=== PATIENT | female | born 1960 | race African-American/Black ===

== ENCOUNTER 2018-01-14 19:05 | Emergency (ER) | payer OTHER ==
[2018-01-14 19:14] VITALS: BMI 30.9
--- NOTE | 2018-01-14 19:20 | PDOC ---
Rapid Medical Evaluation Chief Complaint: Lightheaded Time Seen by Provider: 01/14/18 19:12 Medical Evaluation: Allergies Allergy/AdvReac Type Severity Reaction Status Date / Time No Known Allergies Allergy Verified 01/14/18 19:10 01/14/18 19:13 I have performed a brief in-person evaluation of this patient. The patient presents with a chief complaint of: dizziness, started while driving - drove to family house who called 911. + URI x 3 days Pertinent physical exam findings: Alert, with no neuro changes. I have ordered the following: EKG The patient will proceed to the ED for further evaluation. 01/14/18 19:16 Discharge Disposition - Referrals Referrals: Delmar Reilly MD [Primary Care Provider] - - Patient Instructions - Post Discharge Activity
[2018-01-14] MEDS ORDERED: FAMOTIDINE 20 MG/50 ML IVPB 20 MG/50 ML MG IVPB ONE ×2 (20:02→20:26)
[2018-01-14] MEDS ORDERED: SODIUM CHLORIDE 1,000 ML IV STA (20:02)
--- NOTE | 2018-01-14 20:24 | PDOC ---
History of Present Illness - General Chief Complaint: Lightheaded Stated Complaint: Blood Pressure Problem Time Seen by Provider: 01/14/18 19:12 History Source: Patient - History of Present Illness Initial Comments: 57 y/o F hx of GERD, HTN presents with feeling lightheaded and having burning along substernal region of chest while driving from work around 6:30 PM. States did not feel like her usual GERD as with that she usually has hiccups; is also not on any meds for GERD. Also mentions having mild dry cough and sore throat x 10-12 days, for which she has been taking cough medications. Denies fever, sob, abd pain, n/v/d, headache, visual/gait changes, numbness/tingling/weakness of extremities. Denies smoking or drug use. Denies FH of CAD or MO. 01/14/18 20:27 Past History - Past Medical History Allergies/Adverse Reactions: Allergies Allergy/AdvReac Type Severity Reaction Status Date / Time No Known Allergies Allergy Verified 01/14/18 19:10 Home Medications: Ambulatory Orders Amlodipine Besylate 5 mg PO DAILY 01/14/18 Hydrochlorothiazide 12.5 mg PO DAILY 01/14/18 Losartan Potassium 50 mg PO DAILY 01/14/18 COPD: No HTN: Yes - Suicide/Smoking/Psychosocial Hx Smoking History: Never smoked Have you smoked in the past 12 months: No Hx Alcohol Use: No Review of Systems - Review of Systems Comments:: See HPI 01/14/18 20:35 *Physical Exam - Vital Signs Last Vital Signs Temp Pulse Resp BP Pulse Ox 98.2 F 101 H 18 147/79 98 01/14/18 19:12 01/14/18 19:12 01/14/18 19:12 01/14/18 19:12 01/14/18 19:12 - Physical Exam General Appearance: No: Apparent Distress Respiratory/Chest: positive: Lungs Clear, Normal Breath Sounds. negative: Respiratory Distress Cardiovascular: positive: Regular Rhythm, Regular Rate, S1, S2. negative: Murmur Gastrointestinal/Abdominal: positive: Normal Bowel Sounds, Soft. negative: Tender, Distended, Guarding, Rebound Extremity: positive: Normal Inspection. negative: Pedal Edema, Calf Tenderness Neurologic: positive: inside sales territory manager II-XII NML intact, Fully Oriented, Alert, Normal Mood/ Affect, Motor Strength 5/5. negative: Abnormal Cranial NS, Facial Droop, Numbness, Sensory Deficit Heart Score/ECG Review - History History: Moderately suspicious - Electrocardiogram EKG: Normal - Age Age: 45-65 - Risk Factors Risk Factors Heart Score: Yes Hx Hypertension Based on the list above the patient has:: 1-2 risk factors - Troponin Troponin: </= normal limit - Score Heart Score - Total: 3 #1 EKG shows NSR at 91 bpmm TWI lead III, no other changes noted 01/14/18 20:37 Moderate Sedation - Procedure Monitoring Vital Signs: Procedure Monitoring Vital Signs Temperature 98.2 F 01/14/18 19:12 Pulse Rate 101 H 01/14/18 19:12 Respiratory Rate 18 01/14/18 19:12 Blood Pressure 147/79 01/14/18 19:12 O2 Sat by Pulse Oximetry (%) 98 01/14/18 19:12 ED Treatment Course - LABORATORY CBC & Chemistry Diagram: 01/15/18 00:32 01/14/18 20:35 - ADDITIONAL ORDERS Additional order review: Laboratory Results 01/15/18 01/14/18 01/14/18 00:32 21:25 20:35 Sodium 140 Potassium 3.5 Chloride 105 Carbon Dioxide 24 Anion Gap 11 BUN 23 H Creatinine 1.1 Creat Clearance w eGFR 51.20 Random Glucose 112 H Calcium 9.2 Troponin I < 0.02 < 0.02 Urine Color Yellow Urine Appearance Clear Urine pH 5.0 Ur Specific Harrod 1.024 Urine Protein Negative Urine Glucose (UA) Negative Urine Ketones Negative Urine Blood Negative Urine Nitrite Negative Urine Bilirubin Negative Urine Urobilinogen 2.0 H Ur Leukocyte Esterase Negative 01/15/18 01/14/18 00:32 20:35 RBC 3.80 4.50 MCV 84.9 85.1 MCHC 34.6 34.1 RDW 13.1 13.4 MPV 8.0 7.9 Neutrophils % 87.3 H 80.2 D Lymphocytes % 9.1 D 13.3 D Monocytes % 3.4 L 4.7 Eosinophils % 0.0 D 1.1 Basophils % 0.2 0.7 - RADIOLOGY Radiology Studies Ordered: Category Date Time Status CHEST PA & LAT [RAD] Stat Radiology 01/14/18 20:02 Taken - Medications Given in the ED: ED Medications Discontinued Medications Generic Name Dose Route Start Last Admin Trade Name Freq PRN Reason Stop Dose Admin Famotidine/Sodium Chloride 20 mg in 50 mls @ 100 mls/hr 01/14/18 20:02 20:23 Pepcid 20 Mg Premixed Ivpb - IVPB 01/14/18 20:31 100 mls/hr ONCE ONE Administration Sodium Chloride 1,000 mls @ 1,000 mls/hr 01/14/18 20:02 01/14/18 20:22 Normal Saline - IV 01/14/18 21:01 1,000 mls/hr ASDIR STA Administration Medical Decision Making - Medical Decision Making 57 y/o F hx of GERD and HTN presents with lightheadedness and chest burning sensation that started around 6:30 PM. Initial EKG nonischemic. Risk factors for ACS include HTN and age. Will get 2 sets of troponin and repeat EKG in 3 hours given time of onset of symptoms. Consider GERD. Less suspicious for PNA given afebrile and lungs clear. Unlikely aortic dissection Plan: CBC, BMP, trop, IVF, Pepcid, CXR, reassess 01/14/18 20:38 Initial trop neg Heart score 3 Will get repeat trop and EKG in 3 hours WBC elevated to 15.5 CXR negative for PNA Patient mentions having slight dysuria from last week; will check UA, UCx Abnormal Lab Results 01/14/18 01/14/18 20:35 20:35 WBC 15.5 H Absolute Neuts (auto) 12.5 H BUN 23 H Random Glucose 112 H 01/14/18 21:36 UA negative Repeat labs show no change in WBC count Repeat trop neg; repeat EKG unchanged with no ischemic changes Patient clinically appears well Advised to f/u with her PCP 01/15/18 01:23 *DC/Admit/Observation/Transfer Diagnosis at time of Disposition: Lightheadedness - Discharge Dispostion Disposition: HOME Condition at time of disposition: Good Decision to Admit order: No - Referrals Referrals: Delmar Reilly MD [Primary Care Provider] - 2 Days - Patient Instructions Printed Discharge Instructions: DI for Dizziness-Nonvertigo Additional Instructions: Thank you for choosing [facility]. It was a pleasure taking care of you. You were seen here for dizziness and chest burning sensation Your labs were only notable for slightly elevated white blood cell count Your urine and chest xray were normal Rest of workup was unremarkable. Return to the Emergency Department if your symptoms worsen or persist, you have fever, shortness of breath, chest pain, severe abdominal pain, vomiting, weakness of extremities (arms and/or legs), changes in vision or walking or other concerning symptoms. - Post Discharge Activity
[2018-01-14 20:53] LABS: BASO % 0.7 % (0-2.0); EOS % 1.1 % (0-4.5); HEMATOCRIT 38.3 % (32.4-45.2); HEMOGLOBIN 13.1 GM/dL (10.7-15.3); LYMPH % 13.3 % (8-40); MCH 29.1 pg (25.7-33.7); MCHC 34.1 g/dl (32.0-36.0); MEAN CELL VOLUME 85.1 fl (80-96); MEAN PLT VOLUME 7.9 fl (7.5-11.1); MONO % 4.7 % (3.8-10.2); NEUT % 80.2 % (42.8-82.8); PLATELET COUNT 370 K/MM3 (134-434); RDW 13.4 % (11.6-15.6); WHITE BLOOD COUNT 15.5 K/mm3 (4.0-10.0)
[2018-01-14 21:25] LABS: ANION GAP 11 MMOL/L (8-16); BLOOD UREA NITROGEN 23 mg/dL (7-18); CALCIUM 9.2 mg/dL (8.5-10.1); CHLORIDE 105 mmol/L (98-107); CO2 24 mmol/L (21-32); CREATININE 1.1 mg/dL (0.55-1.3); GLUCOSE,RANDOM 112 mg/dL (74-106); POTASSIUM 3.5 mmol/L (3.5-5.1); SODIUM 140 mmol/L (136-145)
[2018-01-14 22:00] LABS: URINE APPEARANCE CLEAR; URINE BILIRUBIN NEGATIVE (<2.0 mg/dL); URINE COLOR YELLOW; URINE GLUCOSE (UA) NEGATIVE (NEGATIVE); URINE KETONE NEGATIVE (NEGATIVE); URINE LEUK ESTERASE NEGATIVE (NEGATIVE); URINE NITRITE NEGATIVE (NEGATIVE); URINE PROTEIN NEGATIVE (NEGATIVE)
--- NOTE | 2018-01-14 22:02 | PDOC ---
*Physical Exam - Vital Signs Last Vital Signs Temp Pulse Resp BP Pulse Ox 98.2 F 101 H 18 147/79 98 01/14/18 19:12 01/14/18 19:12 01/14/18 19:12 01/14/18 19:12 01/14/18 19:12 ED Treatment Course - LABORATORY CBC & Chemistry Diagram: 01/15/18 00:32 01/14/18 20:35 - ADDITIONAL ORDERS Additional order review: Laboratory Results 01/14/18 20:35 Sodium 140 Potassium 3.5 Chloride 105 Carbon Dioxide 24 Anion Gap 11 BUN 23 H Creatinine 1.1 Creat Clearance w eGFR 51.20 Random Glucose 112 H Calcium 9.2 Troponin I < 0.02 01/14/18 20:35 RBC 4.50 MCV 85.1 MCHC 34.1 RDW 13.4 MPV 7.9 Neutrophils % 80.2 D Lymphocytes % 13.3 D Monocytes % 4.7 Eosinophils % 1.1 Basophils % 0.7 - Medications Given in the ED: ED Medications Discontinued Medications Generic Name Dose Route Start Last Admin Trade Name Blanca PRN Reason Stop Dose Admin Famotidine/Sodium Chloride 20 mg in 50 mls @ 100 mls/hr 01/14/18 20:02 20:23 Pepcid 20 Mg Premixed Ivpb - IVPB 01/14/18 20:31 100 mls/hr ONCE ONE Administration Sodium Chloride 1,000 mls @ 1,000 mls/hr 01/14/18 20:02 01/14/18 20:22 Normal Saline - IV 01/14/18 21:01 1,000 mls/hr ASDIR STA Administration Medical Decision Making - Medical Decision Making 01/14/18 22:00 I have examined this patient and reviewed all her labs work and imaging studies. Case discussed with [facility] provider . I agree with her assessment and management of the case *DC/Admit/Observation/Transfer Diagnosis at time of Disposition: Lightheadedness - Discharge Dispostion Disposition: HOME Condition at time of disposition: Good - Referrals Referrals: Delmar Reilly MD [Primary Care Provider] - 2 Days - Patient Instructions Printed Discharge Instructions: DI for Dizziness-Nonvertigo Additional Instructions: Thank you for choosing [facility]. It was a pleasure taking care of you. You were seen here for dizziness and chest burning sensation Your labs were only notable for slightly elevated white blood cell count Your urine and chest xray were normal Rest of workup was unremarkable. Return to the Emergency Department if your symptoms worsen or persist, you have fever, shortness of breath, chest pain, severe abdominal pain, vomiting, weakness of extremities (arms and/or legs), changes in vision or walking or other concerning symptoms. - Post Discharge Activity
[2018-01-15] MEDS ORDERED: ACETAMINOPHEN 325 MG TABLET (FP) PO ONE (00:33)
[2018-01-15 00:55] LABS: BASO % 0.2 % (0-2.0); HEMATOCRIT 32.3 % (32.4-45.2); HEMOGLOBIN 11.2 GM/dL (10.7-15.3); LYMPH % 9.1 % (8-40); MCH 29.4 pg (25.7-33.7); MCHC 34.6 g/dl (32.0-36.0); MEAN CELL VOLUME 84.9 fl (80-96); MONO % 3.4 % (3.8-10.2); NEUT % 87.3 % (42.8-82.8); PLATELET COUNT 320 K/MM3 (134-434); RDW 13.1 % (11.6-15.6)
[2018-01-15] MEDS ORDERED: ACETAMINOPHEN 325 MG TABLET (FP) ONE (01:23)
[2018-01-15 01:48] VITALS: BP 123/73; PULSE 77; TEMP 98.3
--- NOTE | 2018-01-15 17:01 | EKG ---
Test Reason : Blood Pressure : / mmHG Vent. Rate : 078 BPM Atrial Rate : 078 BPM P-R Int : 142 ms QRS Dur : 076 ms QT Int : 406 ms P-R-T Axes : 069 023 022 degrees QTc Int : 462 ms POOR DATA QUALITY, INTERPRETATION MAY BE ADVERSELY AFFECTED NORMAL SINUS RHYTHM NORMAL ECG Confirmed by MD TAISHA, AALNA ([id number]) on 01/15/2018 5:01:27 PM Referred By: Confirmed By:ALANA SUMNER MD
--- NOTE | 2018-01-15 17:02 | EKG ---
Test Reason : Blood Pressure : / mmHG Vent. Rate : 091 BPM Atrial Rate : 091 BPM P-R Int : 140 ms QRS Dur : 072 ms QT Int : 362 ms P-R-T Axes : 065 024 022 degrees QTc Int : 445 ms NORMAL SINUS RHYTHM WITH SINUS ARRHYTHMIA NORMAL ECG Confirmed by MD TAISHA, ALANA ([id number]) on 01/15/2018 5:02:10 PM Referred By: Confirmed By:ALANA SUMNER MD
== END 2018-01-15 01:48 | disposition home or self-care (01) ==
LOC: JER 19:05
PROC: 3E033GC Introduction of Other Therapeutic Substance into Peripheral Vein, Percutaneous Approach (ICD-10-PCS; principal; 2018-01-14)
PROC: 3E0337Z Introduction of Electrolytic and Water Balance Substance into Peripheral Vein, Percutaneous Approach (ICD-10-PCS; 2018-01-14)
DX: R42 Dizziness and giddiness (principal); I10 Essential (primary) hypertension; K21.9 Gastro-esophageal reflux disease without esophagitis
CPT/HCPCS: 36415; 71046-TC-FY; 80048; 81003; 84484; 85025; 87086; 93005; 93010; 99282-25; J7030